=== PATIENT | male | born 1970 | race Caucasian/White ===

== ENCOUNTER 2017-03-28 17:47 | Emergency (ER) | payer BC ==
[~2017-03-28] VITALS: Ht 185.4 cm; Wt 100.4 kg
[2017-03-28 18:01] VITALS: TEMP 36.9; O2SAT 97; Ht 185.4 cm; Wt 100.4 kg
[2017-03-28] MEDS ORDERED: RABIES VACCINE (IMOVAX) HUMAN DIPL CELL 2.5 INTER.UNIT/ML SYR IM. ONE (18:30)
[2017-03-28] MEDS ORDERED: RABIES IMMUNE GLOBULIN (HUMAN) 150 INTER.UNIT/ML 2 ML VIAL IM. ONE (18:30)
--- NOTE | 2017-03-28 18:35 | EMERGENCY ROOM VISIT NOTE ---
History Report prepared by Scribe: Jennifer Oneill Under the Supervision of: Dr. Mireya Lomeli M.D. First contact with patient: 18:10 Chief Complaint: RABIES VACCINE Stated Complaint: RABIES History of Present Illness The patient is a 46 year old male who presents to the Emergency Room with complaints of Social History Smoking Status: Never Smoker Physical Exam Vital Signs Date Time Temp Pulse Resp B/P (MAP) Pulse Ox O2 Delivery O2 Flow Rate FiO2 03/28/17 18:01 36.9 85 16 145/90 97 Room Air Medical Decision & Procedures ED Course []: Past medical records reviewed. The patient was evaluated in room D1B. A complete history and physical examination was performed. Medication Reconcilliation Current Medication List: was personally reviewed by me Scribe Attestation The scribe's documentation has been prepared under my direction and personally reviewed by me in its entirety. I confirm that the note above accurately reflects all work, treatment, procedures, and medical decision making performed by me. Departure Information Referrals Patria Davila D.O. (PCP) Patient Instructions My [facility]
--- NOTE | 2017-03-28 18:45 | EMERGENCY ROOM VISIT NOTE ---
ED Visit Note First contact with patient: 18:10 CHIEF COMPLAINT: Need for rabies vaccine HISTORY OF PRESENT ILLNESS: This 46-year-old male patient presents to the emergency department with complaints of noticing a bat in the house 2 days ago. The patient states he noticed the bat flying around the entire downstairs of the house. The patient is uncertain how long the bat had been in the house. He states they did call to have it removed the next day, and it was killed and disposed of, and was not saved for testing. The patient is uncertain if there was a bite, but There is concern for rabies exposure. REVIEW OF SYSTEMS: A 6 system review of systems was completed with positives and pertinent negatives listed in the HPI. ALLERGIES: None MEDICATIONS: Atorvastatin PMH: Hyperlipidemia. SOCIAL HISTORY: He lives locally with family. He denies drug, alcohol, tobacco use.. PHYSICAL EXAM: Vital Signs: Reviewed Nurse's notes, vital signs stable. GENERAL : Is a 46-year-old male, in no acute distress, well-developed, well-nourished. HEAD: Atraumatic, without temporal or scalp tenderness. EYES: PERRLA, EOMI, no discharge or injection. SKIN: No rashes, erythema, bruising, or bites noted. Capillary refill less than 2 seconds. NEUROLOGICAL: Alert and oriented to person place and time. Normal sensation to light and sharp touch. MUSCULOSKELETAL: Motor functions grossly intact of the bilateral upper and lower extremities. Full range of motion. There is no tenderness on palpation. EMERGENCY DEPARTMENT COURSE: I examined the patient. The patient was given RIG 20 Units/kg, 2000 units. The patient was given Imovax 1ml IM. The patient was observed for 20 minutes with no reaction. The patient was discharged home in stable condition. DIFFERENTIAL DIAGNOSIS: Rabies exposure, bat bite, and others DIAGNOSIS: Rabies prophylaxis DISCHARGE INSTRUCTIONS: Today is day 0. Return to the ER on days 3, 7, 14, and 28 for subsequent vaccinations. Return sooner or follow up with your family doctor for signs of infection (increased redness, discharge, fever) or for complications with the vaccine series. Current/Historical Medications Scheduled Atorvastatin (Lipitor), 20 MG PO DAILY Allergies Coded Allergies: No Known Allergies (Unverified , 03/28/17) Vital Signs Date Time Temp Pulse Resp B/P (MAP) Pulse Ox O2 Delivery O2 Flow Rate FiO2 03/28/17 19:32 76 18 133/94 Room Air 03/28/17 18:01 36.9 85 16 145/90 97 Room Air Medications Administered Medications (Trade) Dose Ordered Sig/Lydia Route Start Time Stop Time Status Last Admin Dose Admin Rabies Immune Globulin (Imogam Rabies Inj) 2,000 interunit ONCE ONCE IM. 03/28/17 18:30 03/28/17 18:31 DC 03/28/17 19:23 2,000 INTERUNIT Rabies Vaccine Human Diploid Cell (Imovax Rabies) 2.5 interunit ONCE ONCE IM. 03/28/17 18:30 03/28/17 18:31 DC 03/28/17 19:23 2.5 INTERUNIT Departure Information Impression Primary Impression: Encounter for prophylactic administration of rabies immune globulin Additional Impression: Need for prophylactic vaccination against rabies Dispostion Home / Self-Care Condition GOOD Referrals Patria Davila D.OAlejandro (PCP) Patient Instructions My [facility], Rabies Immune Globulin human RIG solution for injection , Rabies Vaccine suspension for injection Additional Instructions Today is day 0. Return to the ER on days 3 (03/31/17) , 7 (04/04/17), and 14 () for subsequent vaccinations. Return sooner or follow up with your family doctor for signs of infection ( increased redness, discharge, fever) or for complications with the vaccine series. Problem Qualifiers
[2017-03-28 19:32] VITALS: BP 133/94; PULSE 76
== END 2017-03-28 19:35 | disposition home or self-care (01) ==
LOC: C.EDB 17:49 → C.EDD 19:35
DX: Z20.3 Contact with and (suspected) exposure to rabies (principal); Z23 Encounter for immunization; E78.5 Hyperlipidemia, unspecified; Z79.899 Other long term (current) drug therapy

== ENCOUNTER 2017-03-31 17:06 | Emergency (ER) | payer BC ==
[~2017-03-31] VITALS: Ht 185.4 cm; Wt 100.1 kg
[2017-03-31 17:11] VITALS: BP 129/83; PULSE 74; TEMP 36.7; O2SAT 98; Ht 185.4 cm; Wt 100.1 kg
--- NOTE | 2017-03-31 17:21 | EMERGENCY ROOM VISIT NOTE ---
ED Visit Note First contact with patient: 17:16 CHIEF COMPLAINT: Rabies prophylaxis HISTORY OF PRESENT ILLNESS: This 46-year-old male patient presents to the emergency department ambulatory for their second rabies shot. The patient has not had any complications from the previous injections. They deny any other complaints. REVIEW OF SYSTEMS: A 6 system review of systems was completed with positives and pertinent negatives listed in the HPI. ALLERGIES: No known drug allergies MEDICATIONS: Unchanged. PMH: Unchanged from previous visit. PHYSICAL EXAM: Vital Signs: Reviewed Nurse's notes, vital signs stable. GENERAL : This is a 46-year-old male, in no acute distress, well-developed, well- nourished. HEAD: Atraumatic, without temporal or scalp tenderness. EYES: PERRLA, EOMI, no discharge or injection. SKIN: Normal. NEUROLOGICAL: Alert and cooperative. Sensory and motor functions grossly intact. EMERGENCY DEPARTMENT COURSE: I examined the patient. The patient was given Imovax 1ml IM. The patient was observed for 20 minutes with no reaction. The patient was discharged home in stable condition. DIAGNOSIS: Rabies prophylaxis DISCHARGE INSTRUCTIONS: Continue vaccination schedule as directed. Return for any complications. Current/Historical Medications Scheduled Atorvastatin (Lipitor), 20 MG PO DAILY Allergies Coded Allergies: No Known Allergies (Unverified , 03/28/17) Vital Signs Date Time Temp Pulse Resp B/P (MAP) Pulse Ox O2 Delivery O2 Flow Rate FiO2 03/31/17 17:11 36.7 74 18 129/83 98 Room Air Medications Administered Medications (Trade) Dose Ordered Sig/Lydia Route Start Time Stop Time Status Last Admin Dose Admin Rabies Vaccine Human Diploid Cell (Imovax Rabies) 2.5 interunit ONCE ONCE IM. 03/31/17 17:30 03/31/17 17:31 DC 03/31/17 17:40 2.5 INTERUNIT Departure Information Impression Primary Impression: Need for post exposure prophylaxis for rabies Dispostion Home / Self-Care Condition GOOD Referrals Patria Davila D.O. (PCP) Patient Instructions My [facility] Additional Instructions Continue vaccination schedule as directed. Return for any complications.
[2017-03-31] MEDS ORDERED: RABIES VACCINE (IMOVAX) HUMAN DIPL CELL 2.5 INTER.UNIT/ML SYR IM. ONE (17:30)
== END 2017-03-31 17:50 | disposition home or self-care (01) ==
LOC: C.EDB 17:07 → C.EDD 17:50
DX: Z23 Encounter for immunization (principal); Z20.3 Contact with and (suspected) exposure to rabies

== ENCOUNTER 2017-04-04 17:28 | Emergency (ER) | payer BC ==
[~2017-04-04] VITALS: Ht 185.4 cm; Wt 98.2 kg
[2017-04-04] MEDS ORDERED: RABIES VACCINE (IMOVAX) HUMAN DIPL CELL 2.5 INTER.UNIT/ML SYR IM. ONE ×2 (17:29→17:45)
[2017-04-04 17:35] VITALS: TEMP 36.6; Ht 185.4 cm; Wt 98.2 kg
--- NOTE | 2017-04-04 17:43 | EMERGENCY ROOM VISIT NOTE ---
ED Visit Note First contact with patient: 17:41 CHIEF COMPLAINT: Rabies prophylaxis HISTORY OF PRESENT ILLNESS: This 46-year-old male patient presents to the emergency department ambulatory for their third rabies shot. The patient has not had any complications from the previous injections. They deny any other complaints. REVIEW OF SYSTEMS: A 6 system review of systems was completed with positives and pertinent negatives listed in the HPI. ALLERGIES: No known drug allergies MEDICATIONS: Unchanged from previous PMH: Unchanged from previous visit. PHYSICAL EXAM: Vital Signs: Reviewed Nurse's notes, vital signs stable. GENERAL : Mrs. a 46-year-old male, in no acute distress, well-developed, well- nourished. HEAD: Atraumatic, without temporal or scalp tenderness. EYES: PERRLA, EOMI, no discharge or injection. SKIN: Normal. NEUROLOGICAL: Alert and cooperative. Sensory and motor functions grossly intact. EMERGENCY DEPARTMENT COURSE: I examined the patient. The patient was given and Imovax 1ml IM. The patient was observed for 20 minutes with no reaction. The patient was discharged home in stable condition. There was some significant delay in obtaining the medication from pharmacy as the InflaRxicef was not working. The patient was kept up-to-date of the delays. DIAGNOSIS: Rabies prophylaxis DISCHARGE INSTRUCTIONS: Continue vaccination schedule as directed. Return for any complications. Current/Historical Medications Scheduled Atorvastatin (Lipitor), 20 MG PO DAILY Allergies Coded Allergies: No Known Allergies (Unverified , 03/28/17) Vital Signs Date Time Temp Pulse Resp B/P (MAP) Pulse Ox O2 Delivery O2 Flow Rate FiO2 04/04/17 19:34 72 18 122/73 98 04/04/17 17:35 36.6 70 16 135/91 99 Room Air Medications Administered Medications (Trade) Dose Ordered Sig/Lydia Route Start Time Stop Time Status Last Admin Dose Admin Rabies Vaccine Human Diploid Cell (Imovax Rabies) 2.5 interunit ONCE ONCE IM. 04/04/17 17:45 04/04/17 17:46 DC 04/04/17 19:32 2.5 INTERUNIT Departure Information Impression Primary Impression: Need for post exposure prophylaxis for rabies Dispostion Home / Self-Care Condition GOOD Referrals Patria Davila D.OAlejandro (PCP) Patient Instructions My [facility] Additional Instructions Continue vaccination schedule as directed. Return for any complications.
[2017-04-04] MEDS ORDERED: ATOR-22 PO (18:24)
[2017-04-04 19:34] VITALS: BP 122/73; PULSE 72; O2SAT 98
== END 2017-04-04 19:36 | disposition home or self-care (01) ==
LOC: C.EDB 17:28 → C.EDD 19:36
DX: Z23 Encounter for immunization (principal); Z20.3 Contact with and (suspected) exposure to rabies

== ENCOUNTER 2017-04-11 18:45 | Emergency (ER) | payer BC ==
[~2017-04-11] VITALS: Ht 185.4 cm; Wt 101.0 kg
[~2017-04-11 18:45] MED LIST: ATOR-22 PO
[2017-04-11 18:49] VITALS: Ht 185.4 cm; Wt 101.0 kg
[2017-04-11] MEDS ORDERED: RABIES VACCINE (IMOVAX) HUMAN DIPL CELL 2.5 INTER.UNIT/ML SYR IM. ONE (19:00)
--- NOTE | 2017-04-11 19:00 | EMERGENCY ROOM VISIT NOTE ---
ED Visit Note First contact with patient: 18:51 Chief Complaint: Rabies Return Visit History of Present Illness: This patient is a 46 year old male who presents to the Emergency Department via private vehicle for their final Rabies Vaccination Injections. The patient reports that they had NO reaction to previous injection. Patient denies the development of any fevers, chills, sweats, or URI symptoms. Medications: Unchanged from previous visit. Allergies: NKDA PMH: Unchanged from previous visit. SHx: Unchanged. ROS: All pertinent positive and negative review of systems are appropriately documented in the History of Present Illness. Physical Exam: VITAL SIGNS - Vital signs and Nursing Notes were reviewed. GENERAL - 46 year old male, well-developed, well-nourished, and in no acute distress. SKIN - Without rashes or lesions. CARDIAC - RRR with normal S1 & S2. No murmurs, rubs, or gallops appreciated. RESPIRATORY - Clear to auscultation bilaterally. No wheezes, rales, or rhonchi appreciated. NEURO - Patient is A&Ox3 and communicates appropriately with the provider. ED Course: Previous ED visit note was reviewed by myself prior to patient evaluation. Patient reports NO reaction to the previous injection(s). Patient received 2.5 IU of Imovax intramuscularly. Patient was observed in the Emergency Department for greater than 20 minutes prior to discharge without signs of reaction. Patient was educated on worrisome symptoms for return visit to the Emergency Department. Patient discharged to home with the intent for follow-up in the Emergency Department as scheduled for the remainder of their injections. Impression: Rabies Prophylaxis Current/Historical Medications Scheduled Atorvastatin (Lipitor), 20 MG PO DAILY Allergies Coded Allergies: No Known Allergies (Unverified , 03/28/17) Vital Signs Date Time Temp Pulse Resp B/P (MAP) Pulse Ox O2 Delivery O2 Flow Rate FiO2 04/11/17 19:16 36.9 91 16 125/81 96 04/11/17 18:49 36.9 91 16 125/81 96 Room Air Medications Administered Medications (Trade) Dose Ordered Sig/Lydia Route Start Time Stop Time Status Last Admin Dose Admin Rabies Vaccine Human Diploid Cell (Imovax Rabies) 2.5 interunit ONCE ONCE IM. 04/11/17 19:00 04/11/17 19:01 DC 04/11/17 19:09 2.5 INTERUNIT Departure Information Impression Primary Impression: Rabies, need for prophylactic vaccination against Dispostion Home / Self-Care Condition GOOD Referrals Patria Davila D.O. (PCP) Patient Instructions My [facility] Additional Instructions Discharge Instructions: You were seen in the Emergency Department today for your Rabies Prophylaxis Injection. CONGRATULATIONS ON FINISHING THE SERIES!!!! Return to the emergency department if your symptoms worsen despite treatment course outlined above. Please return to the emergency department with any new/concerning symptoms.
[2017-04-11 19:16] VITALS: BP 125/81; PULSE 91; TEMP 36.9; O2SAT 96
== END 2017-04-11 19:16 | disposition home or self-care (01) ==
LOC: C.EDB 18:45 → C.EDD 19:16
DX: Z20.3 Contact with and (suspected) exposure to rabies (principal); Z23 Encounter for immunization; Z79.899 Other long term (current) drug therapy